=== PATIENT | male | born 1980 | race African-American/Black ===

== ENCOUNTER 2016-10-18 20:35 | Emergency (ER) | payer OTHER ==
[2016-10-18 20:54] VITALS: BP 131/87
[2016-10-18] MEDS ORDERED: Acetaminophen 325 MG Tab PO ONE (21:52)
--- NOTE | 2016-10-18 21:59 | EDM.PDOC ---
ED HISTORY OF PRESENT ILLNESS - General Chief Complaint: Respiratory Problem Stated Complaint: FEVER COUGH NAUSEA Time Seen by Provider: 10/18/16 21:38 Source of Information: Reports: Patient History Limitations: Reports: No limitations - History of Present Illness INITIAL COMMENTS - FREE TEXT/NARRATIVE: Patient is a 36-year-old male who presents to the ED complaining of fever, cough , sinus congestion, headache, runny nose, sore throat, body aches, and cough- induced emesis that started approximately 4 days ago. Patient states symptoms have been waxing and waning in intensity since onset. He's had a decrease in appetite. States he has been wanted to sleep more during the day. Denies any chest pain, dizziness, lightheadedness, abdominal pain, syncopal episode, stiff neck, or rash. Denies any previous past medical history and is currently taking no prescription medications. States spouse and child have experienced similar symptoms that are resolving. Timing/Duration: Reports: Constant, Waxing/waning Severity: mild Location, General: Reports: generalized Quality: Reports: Ache Improves with: Reports: None Worsens with: Reports: None Context, General: Reports: Sick contact (, child) Associated Symptoms (General): Reports: cough w sputum (Clear sputum), fever/ chills, headaches, loss of appetite, malaise, nausea/vomiting (Cough-induced emesis). Denies: confusion, shortness of breath, syncope, weakness Treatments LAUNDRY AID: Reports: Other (see below) (none stated) - Related Data Allergies/ADRs: Allergies Allergy/AdvReac Type Severity Reaction Status Date / Time No Known Allergies Allergy Verified 10/18/16 20:54 Home Meds: Home Meds . [No Known Home Meds] 10/18/16 [History] Past Medical History - Past Health History Medical/Surgical History: Denies Medical/Surgical History Cardiovascular History: Reports: Other (see below) (RLE superficial thrombophlebitis) - Past Surgical History Musculoskeletal Surgical History: Reports: ORIF Social & Family History - Family History Family Medical History: Noncontributory - Tobacco Use Smoking Status *Q: Former Smoker Years of Tobacco use: 24 Packs/Tins Daily: 2 Used Tobacco, but Quit: Yes Month Tobacco Last Used: 08/14/2016 - Caffeine Use Caffeine Use: Reports: Coffee Other Caffeine Use: occasional - Recreational Drug Use Recreational Drug Use: No - Living Situation & Occupation Living situation: Reports: single, with significant other (Girlfriend) 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 Denies: weakness HEENT: Reports: Throat pain, Other (sinus congestion, mild throat pain). Denies : Ear pain Respiratory: Reports: cough, sputum. Denies: shortness of breath Cardiovascular: Reports: No symptoms GI/Abdominal: Reports: Vomiting (coughed induced). Denies: Nausea Musculoskeletal: Reports: muscle pain (generalized) Skin: Denies: rash ED EXAM, GENERAL - Physical Exam Exam: See Below Exam Limited By: No limitations General Appearance: alert, WD/WN, mild distress Eye Exam: bilateral eye: PERRL Ears: normal external exam, normal canal, hearing grossly normal, normal TMs Nose: normal inspection, nasal swelling, nasal drainage, clear rhinorrhea Throat/Mouth: Normal inspection, Normal voice, No airway compromise, Other ( mild erythema to the posterior pharynx) Neck: normal inspection, supple, non-tender, full range of motion. No: lymphadenopathy (L), lymphadenopathy (R) Respiratory/Chest: no respiratory distress, lungs clear, normal breath sounds, no accessory muscle use, chest non-tender Cardiovascular: normal peripheral pulses, regular rate, rhythm Peripheral Pulses: 2+: radial (L) GI/Abdominal: normal bowel sounds, soft, non tender, no organomegaly, no distention Neurological: alert, oriented, CN II-XII intact, normal cognition, no motor/ sensory deficits Psychiatric: normal affect, normal mood Skin Exam: Warm, Dry, Intact, Normal color Course - Vital Signs Last Recorded V/S: Last Vital Signs Temp 100 F 10/18/16 20:48 Pulse 110 H 10/18/16 20:48 Resp 18 10/18/16 20:48 BP 131/87 10/18/16 20:48 Pulse Ox 97 10/18/16 20:48 - Orders/Labs/Meds Orders: Active Orders 24 hr Category Date Time Status CULTURE STREP A CONFIRMATION [RM] Stat Lab 10/18/16 21:00 Results Rapid Strep w/culture conf [STREP SCRN A RAPID W CULT Lab 10/18/16 21:00 Results CONF] [RM] Stat Meds: Medications Discontinued Medications Generic Name Dose Route Start Last Admin Trade Name Pasha PRN Reason Stop Dose Admin Acetaminophen 650 mg 10/18/16 21:52 10/18/16 22:27 Tylenol PO 10/18/16 21:53 650 mg NOW ONE Administration Promethazine HCl/Codeine 5 ml 10/19/16 21:53 10/18/16 22:27 Phenergan With Codeine PO 10/19/16 21:54 5 ml ONETIME ONE Administration Promethazine HCl/Codeine Confirm 10/18/16 22:14 10/18/16 22:28 Phenergan With Codeine Administered 10/18/16 22:15 Not Given Dose 5 ml .ROUTE .[facility] ONE - Re-Assessments/Exams Free Text/Narrative Re-Assessment/Exam: Strep screen and influenza screen were obtained prior to seeing the patient. Strep screen was negative. Influenza screen was positive for influenza A. Symptoms started approximately 4 days ago thus outside of the treatment window for Tamiflu. In addition both his and child have had similar symptoms that are resolving. Patient complains of increased coughing at night not allowing adequate rest. Ordered promethazine with codeine 5 mL by mouth x1. Ordered Tylenol 650 mg by mouth x1. Will discharge patient home with instructions for influenza A. In addition prescription for promethazine with codeine will be provided through [facility]. Departure - Departure Time of Disposition: 22:04 Disposition: Home, Self-Care 01 Condition: fair Clinical Impression: Influenza A Instructions: Influenza, Adult, [id number] Referrals: PCP,None [Primary Care Provider] - Ava Dennison PA [Physician Instructor [employer]] - Forms: ED Department Discharge, Return to Work/School Form Additional Instructions: As discussed you have influenza A. treatment at this point is symptomatic care. Take Tylenol and Motrin in alternating fashion for fever/body aches. Ensure adequate rest. Push the fluids. Refrain from contact with people until fever free for 24 hours. Take promethazine with codeine 5-10 mls every 4 to 6 hours as needed for cough. No driving this evening nor while taking codeine. Followup with provider at [facility] as needed if symptoms have not resolved by next week. Return to the E.D. for any new or worsening symptoms.
[2016-10-18] MEDS ORDERED: Codeine/Promethazine 10-6.25 MG/5 ML Syrup 5 ML UD Cup ONE (22:14)
[2016-10-19] MEDS ORDERED: Codeine/Promethazine 10-6.25 MG/5 ML Syrup 5 ML UD Cup PO ONE (21:53)
== END 2016-10-18 22:29 | disposition home or self-care (01) ==
LOC: JD.ED 20:35
DX: J10.1 Influenza due to other identified influenza virus with other respiratory manifestations (principal); Z98.890 Other specified postprocedural states; Z87.891 Personal history of nicotine dependence
CPT/HCPCS: 87081; 87430; 87804; 99283; A9270

== ENCOUNTER 2017-08-07 18:02 | Emergency (ER) | payer SELFPAY ==
[2017-08-07 18:14] VITALS: BP 153/88
[2017-08-07] MEDS ORDERED: Diphtheria,Pertussis(Acell),Tetanus Vaccine 0.5 ML SDV IM ONE (18:39)
--- NOTE | 2017-08-07 19:02 | EDM.PDOC ---
ED HPI GENERAL MEDICAL PROBLEM - General Chief Complaint: Laceration Stated Complaint: CUT ON R RINGER FINGER Time Seen by Provider: 08/07/17 18:28 Source of Information: Reports: Patient History Limitations: Reports: No Limitations - History of Present Illness INITIAL COMMENTS - FREE TEXT/NARRATIVE: Patient is a 37-year-old male presents ED complaining of a small laceration to the right ring finger palmar aspect DIP. Patient was pulling a stove out and accidentally cut the finger. He was unable to control the bleeding thus prompted evaluation in ED. He thinks he may need some stitches. In the status is not up-to-date. Minimal pain present. Bleeding has stopped with admission to the ED. Eyes any sensory/motor deficits distally. - Related Data Allergies Allergy/AdvReac Type Severity Reaction Status Date / Time No Known Allergies Allergy Verified 10/18/16 20:54 Home Meds: Home Meds . [No Known Home Meds] 10/18/16 [History] Past Medical History - Past Health History Medical/Surgical History: Denies Medical/Surgical History Cardiovascular History: Reports: Other (See Below) Other Cardiovascular History: DVT right leg - Past Surgical History Musculoskeletal Surgical History: Reports: ORIF Social & Family History - Family History Family Medical History: Noncontributory - Tobacco Use Smoking Status *Q: Current Every Day Smoker Years of Tobacco use: 24 Packs/Tins Daily: 0.2 Used Tobacco, but Quit: Yes Month Tobacco Last Used: 08/14/2016 - Caffeine Use Caffeine Use: Reports: Coffee Other Caffeine Use: occasional - Recreational Drug Use Recreational Drug Use: No - Living Situation & Occupation Living situation: Reports: Single, with Significant Other Occupation: Employed ED ROS GENERAL - Review of Systems Review Of Systems: See Below ED EXAM, SKIN/RASH Exam: See Below Exam Limited By: No Limitations General Appearance: Alert, WD/WN, No Apparent Distress Ears: Hearing Grossly Normal Nose: Normal Inspection Throat/Mouth: Normal Voice, No Airway Compromise Neck: Normal Inspection, Supple Respiratory/Chest: No Respiratory Distress, No Accessory Muscle Use Cardiovascular: Normal Peripheral Pulses, Regular Rate, Rhythm Peripheral Pulses: 4+: Radial (R) Extremities: Other (1.5 cm superficial laceration to the right ring finger palmar side along the crease of the DIP. Bleeding controlled with silver nitrates. His Steri-Strip applied with dressing over the flap injury.) Course - Vital Signs Last Recorded V/S: Last Vital Signs Temp 98.3 F 08/07/17 18:10 Pulse 95 08/07/17 18:10 Resp 18 08/07/17 18:10 BP 153/88 H 08/07/17 18:10 Pulse Ox 100 08/07/17 18:10 - Orders/Labs/Meds Orders: Active Orders 24 hr Category Date Time Status Vaccines to be Administered [RC] PER UNIT ROUTINE Care 08/07/17 18:39 Active Meds: Medications Discontinued Medications Generic Name Dose Route Start Last Admin Trade Name Pasha PRN Reason Stop Dose Admin Diphtheria/Tetanus/Acell Pertussis 0.5 ml 08/07/17 18:39 08/07/17 18:45 Adacel IM 08/07/17 18:40 0.5 ml .ONCE ONE Administration - Re-Assessments/Exams Free Text/Narrative Re-Assessment/Exam: Laceration did not require sutures. Bleeding persisted with examination and after holding direct pressure. Utilize 2 silver nitrate sticks to cauterize the bleeding. Hemostasis was obtained. Steri-Strips and dressing applied. Tetanus status updated. Will discharge patient home. Departure - Departure Time of Disposition: 19:00 Disposition: Home, Self-Care 01 Condition: Good Clinical Impression: Laceration of finger Qualifiers: Encounter type: initial encounter Finger: ring finger Damage to nail status: without damage Foreign body presence: without foreign body Laterality: right Qualified Code(s): S61.214A - Laceration without foreign body of right ring finger without damage to nail, initial encounter - Discharge Information Instructions: Laceration Care, Adult, [id number] Referrals: PCP,None [Primary Care Provider] - Forms: ED Department Discharge, ED Return to Work/School Form Additional Instructions: Cleanse site twice daily with soap and water, pat dry, reapply triple antibiotic ointment, and dressing. Keep wound clean and dry. Do not soak wound. Take Tylenol and ibuprofen in alternating fashion for pain. Left Steri-Strip to fall off on its own. Return to the ED for any new or worsening symptoms. - My Orders Last 24 Hours: My Active Orders 08/07/17 18:39 Vaccines to be Administered [RC] PER UNIT ROUTINE - Assessment/Plan Last 24 Hours: My Active Orders 08/07/17 18:39 Vaccines to be Administered [RC] PER UNIT ROUTINE
== END 2017-08-07 19:12 | disposition home or self-care (01) ==
LOC: JD.ED 18:02
DX: S61.214A Laceration without foreign body of right ring finger without damage to nail, initial encounter (principal); F17.210 Nicotine dependence, cigarettes, uncomplicated; Z23 Encounter for immunization; W26.8XXA Contact with other sharp object(s), not elsewhere classified, initial encounter
CPT/HCPCS: 12001; 90471; 90715; 99282; 99283-25